=== PATIENT | male | born 1965 | race African-American/Black ===

== ENCOUNTER 2023-07-03 11:26 | Emergency (ER) | payer OTHER ==
[~2023-07-03] VITALS: Ht 175.3 cm; Wt 97.0 kg
[2023-07-03 11:30] VITALS: TEMP 98.1; O2SAT 99
[2023-07-03] MEDS ORDERED: IOHEXOL-350 100 ML BOTTLE ONE (12:07)
[2023-07-03] MEDS ORDERED: TENECTEPLASE 50MG/VIAL IV NR (12:15)
[2023-07-03] MEDS ORDERED: *TENECTEPLASE FOR AIS XX SCH (12:35)
[2023-07-03 12:41] LABS: BASOPHILS % 0.8 % (0.0-2.0); DIFFERENTIAL COMMENT 0; EOSINOPHILS % 1.9 % (0.0-5.0); HEMOGLOBIN. 13.3 g/dL (14.0-18.0); LYMPHOCYTES % 25.9 % (20.0-50.0); MEAN CORPUSCULAR HEMOGLOBIN 25.9 pg (28.0-32.0); MEAN CORPUSCULAR HGB CONC 32.6 g/dL (31.0-37.0); MEAN CORPUSCULAR VOLUME 79.5 fL (80.0-94.0); MEAN PLATELET VOLUME 8.4 fl (7.4-10.4); MONOCYTES % 10.2 % (2.0-8.0); NEUTROPHILS % 61.2 % (40.0-76.0); PLATELET 228 x1000/uL (130-400); RED BLOOD CELL COUNT 5.16 mill/uL (4.7-6.1); RED CELL DISTRIBUTION WIDTH 14.6 % (11.6-14.6); WHITE BLOOD COUNT 8.9 x1000/uL (4.5-11.0)
[2023-07-03 12:49] LABS: PROTHROMBIN TIME 11.3 sec (9.6-11.0)
[2023-07-03 12:50] LABS: CHLORIDE 109 mEq/L (98-107); POTASSIUM 3.6 mEq/L (3.5-5.1); SODIUM 140 mEq/L (136-145)
[2023-07-03 12:51] LABS: CARBON DIOXIDE 26 mEq/L (21-32)
[2023-07-03 12:56] LABS: CREATININE 1.2 mg/dL (0.6-1.3); GLUCOSE 107 mg/dL (70-105); UREA NITROGEN BLOOD 15 mg/dL (9-23)
[2023-07-03 12:58] LABS: ALANINE AMINOTRANSFERASE 20 IU/L (10-49); ALBUMIN 4.1 g/dL (3.2-4.8); ASPARTATE AMINOTRANSFERASE 17 IU/L (<34); BILIRUBIN TOTAL 0.6 mg/dL (0.1-1.0); CREATINE KINASE 131 IU/L (46-171); PROTEIN TOTAL 6.8 g/dL (6.0-8.3)
[2023-07-03 13:00] LABS: CALCIUM 9.4 mg/dL (8.7-10.4)
[2023-07-03 13:06] LABS: ETHANOL BLOOD < 10 mg/dL (<10); TROPONIN I HIGH SENSITIVITY < 4 ng/L (3.0-53)
[2023-07-03] MEDS: ONDANSETRON HCL 4MG/2ML INJ IV ONE (13:34)
[2023-07-03] MEDS ORDERED: MIDAZOLAM HCL 100 MG in DEXT 5% WATER 80 ML IV ONE (14:00)
[2023-07-03] MEDS ORDERED: FENTANYL 2500MCG/250ML PMX 250 ML IV ONE (14:00)
[2023-07-03] MEDS: HYDRALAZINE 20MG/ML VIAL IV ONE (14:07)
[2023-07-03] MEDS: MIDAZOLAM HCL 2 MG/2 ML VIAL IV ONE ×2 (14:08→14:27)
[2023-07-03 14:12] VITALS: PULSE 72; RESP 16
[2023-07-03] MEDS ORDERED: FENTANYL 2500MCG/250ML PMX 250 ML IV PRN (14:15)
[2023-07-03] MEDS ORDERED: MIDAZOLAM 100MG/100ML PREMIX IV PRN (14:15)
[2023-07-03] MEDS: NICARDIPINE 40MG/200ML PREMIX 200 ML IV PRN (14:28)
[2023-07-03] MEDS ORDERED: FENTANYL CITRATE 2,500 MCG in SODIUM CHLORIDE 0.9% 200 ML IV PRN (14:30)
[2023-07-03 14:45] VITALS: BP 108/56; PULSE 84; RESP 20
== END 2023-07-03 15:17 | disposition short-term general hospital (02) ==
LOC: ER 11:26
DX: I63.9 Cerebral infarction, unspecified (principal); J96.00 Acute respiratory failure, unspecified whether with hypoxia or hypercapnia; I65.1 Occlusion and stenosis of basilar artery; I10 Essential (primary) hypertension
CPT/HCPCS: 80053; 80320; 82550; 83880; 83690; 85025; 85610; 86850; 86900; 86901; 84484; 36415; 71045; 70496; 70498; 70450; 31500; 93005; 96365; 96375; 99291; Q9967; Z7610 ×6; J0360; J2250; J2405; J3101; 94002; J3010; J7060; G0480